=== PATIENT | female | born 1950 | race Caucasian/White ===

== ENCOUNTER 2016-11-01 07:53 | Inpatient (IN) | payer OTHER, MEDICARE ==
[~2016-11-01 07:53] MED LIST: NS IV ONE; POVIDONE-IODINE 20 ML in SODIUM CL IRRIG SOLUTION 500 ML IRR ONE; ROPIVACAINE 0.2% 80 MG, EPINEPHrine 0.2 MG, KETOROLAC TROMETHAMINE 30 MG in BAG 0 ML IU ONE; TRANEXAMIC ACID IV ONE
[2016-11-01] MEDS ORDERED: FAMOTIDINE 20 MG TAB PO ONE (08:32)
[2016-11-01] MEDS ORDERED: ceFAZolin 2 GM/DEXTROSE 100 ML IV ONE (08:32)
[2016-11-01] MEDS ORDERED: DEXAMETHASONE 4 MG/ML VIAL IVP ONE (08:32)
[2016-11-01] MEDS ORDERED: ACETAMINOPHEN 325 MG TAB PO ONE (08:32)
[2016-11-01] MEDS ORDERED: ceFAZolin 1 GM/5 ML SYR ONE (08:37)
[2016-11-01] MEDS ORDERED: LIDOCAINE 1% 2 ML INJ ONE (08:46)
--- NOTE | 2016-11-01 08:48 | PDHPUP ---
History & Physical Update H&P update statement: This history and physical update is based on an assessment of the patient which was completed after admission or registration (within 24 hours), but prior to the surgery/procedure. H&P update: H&P reviewed & patient examined, no change in patient's condition since H&P completed
[2016-11-01] MEDS ORDERED: MIDAZOLAM 2 MG/2 ML VIAL IVP ONE (09:17)
[2016-11-01] MEDS ORDERED: MIDAZOLAM 2 MG/2 ML VIAL ONE (09:18)
[2016-11-01] MEDS ORDERED: LIDOCAINE 1% 2 ML INJ ID PRN (09:19)
[2016-11-01] MEDS ORDERED: LR 1,000 ML IV ONE (09:19)
--- NOTE | 2016-11-01 09:19 | PDANEPAE ---
ANE Past Medical History - Cardiovascular History Hx Hypertension: Yes Hx Arrhythmias: No Hx Chest Pain: No Hx Coronary Artery / Peripheral Vascular Disease: No Hx CHF / Valvular Disease: No Hx Palpitations: No - Pulmonary History Hx COPD: No Hx Asthma/Reactive Airway Disease: No Hx Recent Upper Respiratory Infection: No Hx Oxygen in Use at Home: No Hx Sleep Apnea: No Sleep Apnea Screening Result - Last Documented: Negative Pulmonary History Comment: PNEUMONIA YRS AGO - Neurologic History Hx Cerebrovascular Accident: No Hx Seizures: No Hx Dementia: No - Endocrine History Hx Diabetes: No Hypothyroid: No Hyperthyroid: No Obesity: yes - Renal History Hx Renal Disorders: No - Liver History Hx Hepatic Disorders: No - Neurological & Psychiatric Hx Hx Neurological and Psychiatric Disorders: No - Congenital Disorder History Hx Congenital Disorders: No - GI History Hx Gastrointestinal Disorders: No - Other Health History Other Health History: OSTEOARTHRITIS. ROSECIA - Chronic Pain History Chronic Pain: Yes (LT HIP) - Surgical History Prior Surgeries: RT FOOT ORIF TOES 08/2014. R breast lumpectomy ANE Review of Systems - Exercise capacity METS (RN): 4 METS ANE Patient History - Allergies Allergies/Adverse Reactions: No Known Allergies Allergy (Verified 10/18/16 13:14) - Home Medications Home Medications: Ascorbic Acid [Vitamin C] 1,000 mg PO DAILY 10/18/16 [Last Taken Unknown] Aspirin [Aspirin 81mg (*)] 81 mg PO BID 10/18/16 [Last Taken Unknown] Beta-Carotene(A) W-C & E/Min [Ocuvite] 1 tab PO DAILY 10/18/16 [Last Taken Unknown] Glucosamine/Chondroitin [Glucosamine/Chondroitin (*)] 1 each PO DAILY 10/18/16 [ Last Taken Unknown] Herbals/Supplements -Info Only 1 ea PO DAILY 10/18/16 [Last Taken Unknown] Ibuprofen [Motrin (*)] 400 mg PO TID PRN 10/18/16 [Last Taken Unknown] Lisinopril/Hctz 20/12.5MG [Zestoretic/Prinzide 20/12.5MG (*)] 1 ea PO DAILY 02/24 [Last Taken Unknown] Pravastatin Sodium [Pravachol] 10 mg PO HS 10/18/16 [Last Taken Unknown] Vitamin B Complex [Super B-50 Complex] 1 each PO DAILY 10/18/16 [Last Taken Unknown] - NPO status NPO Since - Liquids (Date): 10/31/16 NPO Since - Liquids (Time): 20:00 NPO Since - Solids (Date): 10/31/16 NPO Since - Solids (Time): 20:00 - Smoking Hx Smoking Status: Never smoked - Family Anes Hx Family Hx Anesthesia Complications: NEG ANE Labs/Vital Signs - Vital Signs Blood Pressure: 131/74 Heart Rate: 77 Respiratory Rate: 16 O2 Sat (%): 91 Height: 162.56 cm Weight: 86.183 kg ANE Physical Exam - Airway Neck exam: FROM Mallampati Score: Class 2 Mouth exam: normal dental/mouth exam, poor dentition - Pulmonary Pulmonary: no respiratory distress, no rales or rhonchi, clear to auscultation - Cardiovascular Cardiovascular: regular rate and rhythym, no murmur, rub, or gallop - ASA Status ASA Status: II ANE Anesthesia Plan Anesthesia Plan: MAC, spinal
[2016-11-01] MEDS ORDERED: fentaNYL 100 MCG/2 ML INJ ONE (09:36)
[2016-11-01] MEDS ORDERED: PROPOFOL/EMULSION 500 MG/50 ML BOTTLE IV ONE (09:36)
[2016-11-01] MEDS ORDERED: ONDANSETRON 4 MG/2 ML VIAL ONE (09:37)
[2016-11-01] MEDS ORDERED: PHENYLEPHRINE HCL 100 MCG/ML SYR ONE (09:55)
[2016-11-01] MEDS ORDERED: epHEDrine SULFATE 10 MG/ML SYR ONE ×4 (10:03→10:28)
[2016-11-01] MEDS ORDERED: ONDANSETRON 4 MG/2 ML VIAL IVP PRN ×2 (10:22→11:21)
[2016-11-01] MEDS ORDERED: NALOXONE HCL 0.4 MG/ML INJ IVP PRN (10:22)
[2016-11-01] MEDS ORDERED: PROMETHAZINE HCL 25 MG/ML INJ IVP PRN ×2 (10:22→11:21)
[2016-11-01] MEDS ORDERED: ACETAMINOPHEN 500 MG TAB PO PRN (10:22)
[2016-11-01] MEDS ORDERED: D5W LR 500 ML IV PRN (10:22)
[2016-11-01] MEDS ORDERED: HYDROCODONE/APAP 5/325 TAB PO PRN (10:22)
--- NOTE | 2016-11-01 11:18 | POSTOPPROG ---
Post Op Note Date of Operation: 11/01/16 Surgeon: David Perez [employer] Superintendent: Trent Mishra/Case Robledo Anesthesiologist: Derik Gil Anesthesia: IV Sedation, Spinal Post-op Diagnosis: Left hip severe degenerative arthritis Procedure: Left total hip arthroplasty Inf/Abcess present in the surg proc area at time of surgery?: No EBL: [id number]
[2016-11-01] MEDS ORDERED: NS 500 ML IV PRN (11:21)
[2016-11-01] MEDS ORDERED: DIPHENOXYLATE/ATROPINE LOMOTIL 1 TAB PO PRN (11:21)
[2016-11-01] MEDS ORDERED: PHARMACY PAIN CONSULT 1 EA MISC PRN (11:21)
[2016-11-01] MEDS ORDERED: BISACODYL 10 MG SUPP PR PRN (11:21)
[2016-11-01] MEDS ORDERED: PROMETHAZINE HCL 25 MG SUPPR PR PRN (11:21)
[2016-11-01] MEDS ORDERED: LACTULOSE 20 GM/30 ML UDCUP PO PRN (11:21)
[2016-11-01] MEDS ORDERED: CYCLOBENZAPRINE 10 MG TAB PO PRN (11:21)
[2016-11-01] MEDS ORDERED: MAGNESIUM HYDROXIDE 30 ML UDCUP PO PRN (11:21)
[2016-11-01] MEDS ORDERED: ONDANSETRON DISINTEGRATING 4 MG TAB PO PRN (11:21)
[2016-11-01] MEDS ORDERED: POLYETHYLENE GLYCOL 3350 17 GM PKT PO PRN (11:21)
[2016-11-01] MEDS ORDERED: diphenhydrAMINE 25 MG CAP PO PRN (11:21)
[2016-11-01] MEDS ORDERED: METOCLOPRAMIDE 10 MG/2 ML VIAL IVP PRN (11:21)
[2016-11-01] MEDS ORDERED: oxyCODONE IR 5 MG TAB PO PRN (11:21)
[2016-11-01] MEDS ORDERED: TEMAZEPAM 15 MG CAP PO PRN (11:21)
--- NOTE | 2016-11-01 12:28 | GOP ---
[f rep st] OPERATIVE REPORT DATE OF OPERATION: 11/01/2016 SURGEON: David Perez MD GAS ADJUSTER: Trent Mishra and Case Robledo. ANESTHESIA: A combination of Marcaine, spinal, and IV sedation. ANESTHESIOLOGIST: Dr. Derik Gil. PREOPERATIVE DIAGNOSIS: Left hip severe degenerative arthritis. POSTOPERATIVE DIAGNOSIS: Left hip severe degenerative arthritis. PROCEDURE PERFORMED: Left total hip arthroplasty, ceramic femoral head on highly cross-linked polye thylene cup liner. FINDINGS: ESTIMATED BLOOD LOSS: About 400 mL. COUNTS: The sponge and needle count were correct on 2 occasions. I used a [employer] Tritanium solid-backed hemispherical shell with an outside diameter of 52 mm. The liner was a Walsh X3 flush highly cross-linked liner with an inside diameter of 32 mm. The femora l component was a press-fit Rios Accolade II standard offset stem in size 4. The femoral head wa s a Walsh Biolox Delta ceramic head with a -4 mm neck length and a 32 mm outside diameter. Trent Mishra and Case Robledo acted as surgical assistants. Their assistance was a medical sharath yang. DESCRIPTION OF PROCEDURE: The patient was given 2 g of IV Ancef preoperatively within 60 minutes of surgery. She was also given IV tranexamic acid at a dose of 20 mg/kg. She was placed on the [facility] room table and given spinal anesthesia with Marcaine by Dr. Gil. She was then placed s upine and given IV sedation. A Patricia catheter was not used. She wore a RICHIE stocking and SCD on the nonoperative leg. She was rolled to the right lateral decubitus position. The position was secure d with the pegboard table attachment. An axillary roll was used and all pressure points were carefu lly padded. Her height is 5 feet 4 inches, her weight 190 pounds and her BMI is 32.6. Her bulkines s made positioning difficult. Her perineum was isolated with plastic adhesive drapes. The left hip and left lower extremity were prepped with ChloraPrep. They were draped free using sterile sheets, stockinette, and Ioban plastic drape. The [employer] time-out was performed to veri fy the correct surgical side and the correct patient identity. The [place] time-out was also perfor med. I made a 5-6 inch straight oblique posterolateral hip skin incision. Subcutaneous tissues were autumn ply divided and hemostasis was obtained using electrocautery. She had about a 2-3 inch thick layer of subcutaneous fat. Her fascia pennie was identified and split along the axis of its fibers. I then curved posteriorly and proximally, and split the fascia of the gluteus genie and bluntly split th e muscle fibers in line with their orientation. The Charnley self-retaining retractor was inserted. Her sciatic nerve was located, partially exposed, and protected throughout the procedure. The ext ernal rotators and the posterior hip capsule were divided as separate layers at the base of the femo ral neck, tagged, and reflected posteriorly. A smooth 1/8-inch Steinmann pin was inserted verticall y into the ilium superior to the acetabulum. A 1/8-inch drill bit was inserted vertically into the greater trochanter and parallel to the first pin. The distance between the 2 was measured for leg l ength reference. The femoral head was dislocated posteriorly. Severe degenerative changes were pre sent on her femoral head. The femoral neck was osteotomized at the appropriate level and inclinatio n. I was careful to preserve all the posterior capsule and most of the anterior capsule. The remna nt of her damaged labrum was excised. I prepared the femur first. This allowed me to triage licensed practical nurse the amount of natural femoral neck anteversion . This, in turn, allowed me to later determine the correct amount of cup anteversion. She had 12-1 5 degrees of femoral neck anteversion. The canal was opened laterally with a box chisel. I broache d sequentially up to size 4. I was using the Walsh Accolade II stem. I used the size 4 broach as a trial stem. I was careful to lateralize adequately. Appropriate retractors were inserted to exp ose the acetabulum. The acetabulum was reamed sequentially up to size 51 mm. I selected the Stryke r Tritanium solid-backed hemispherical shell in a size 52 outside diameter. This was tapped securel y into place in the proper degree of inclination anteversion. I used the transverse acetabular liga ment and other acetabular bony landmarks to help me properly orient the cup. I inserted a screw-in metal dome hole plug. She did not have any significant periacetabular osteophytes. I performed a series of trial reductions to determine length and stability. I concluded that the si ze 4 stem with a -4 mm neck length, a 32 mm head and a flush liner gave me the proper combination of appropriate length and good anterior and posterior stability. The flush or 0 degree Rios X3 hig hly cross-linked polyethylene liner was inserted and tapped securely into place. The Rios Accola de II stem in size 4 with standard offset was inserted press-fit and was a very tight fit. I did on e final trial reduction and confirmed that the -4 mm neck length with a 32 mm head was the proper co mbination. The Walsh Biolox Delta ceramic head with an outside diameter of 32 mm and a neck lengt h of -4 mm was tapped securely onto the clean trunnion. The acetabulum was irrigated, and cleaned a nd the hip was reduced one final time. She had excellent anterior and posterior stability, and appr opriate length. 40 mL of the joint anesthetic cocktail was injected into the capsule, the deep musculature, and the subcutaneous tissues along the skin edges. The joint was thoroughly irrigated one final time with a dilute Betadine solution. Her sciatic nerve was reinspected and looked unharmed. The external rot ators and the posterior hip capsule were repaired in separate layers with #2 FiberWire sutures throu gh drill holes in the greater trochanter. This provided a strong posterior capsular and external ro tator repair. The fascia pennie was closed first with a #2 fuownj-in-dwgau FiberWire suture followed by a running #2 barbed Ethicon Stratafix PDO suture. The subcutaneous tissues were closed with a ru nning 0 barbed Ethicon Stratafix Monoderm suture. The skin was closed with a running 3-[address] [facility] icon Stratafix Monoderm subcuticular suture. The skin edges were reapproximated and sealed with Bandar mabond glue. The wound was covered with a strip of Telfa and everything was held in place with a pi gaston of clear plastic Tegaderm. A long-leg RICHIE stocking and SCD were applied to her left lower extre mity. She wore a stocking and SCD on the opposite leg during the procedure. An abduction pillow wa s placed between her knees. She was awakened from anesthesia and rolled to the supine position on [facility]. She was taken to the PACU in satisfactory condition. There were no recognized intraoperative complications. /[id number]/MODL
--- NOTE | 2016-11-01 12:37 | POSTANESTH ---
Post Anesthetic Evaluation Cardiovascular Status: Normal, Stable Respiratory Status: Normal, Stable Level of Consciousness/Mental Status: Can Participate in Eval Pain Control: Adequate, Prn Tx Ordered Nausea/Vomiting Control: Adequate, Prn Tx Ordered Complications Possibly Related to Anesthesia: None Noted
[2016-11-01] MEDS: KETOROLAC 30 MG/1 ML SDV IVP PRN ×2 (12:57→20:48)
[2016-11-01] MEDS: ACETAMINOPHEN 325 MG TAB PO SCH ×2 (13:02→19:05)
[2016-11-01] MEDS: LR 1,000 ML IV SCH ×2 (13:06→20:48)
[2016-11-01] MEDS: ceFAZolin 2 GM/DEXTROSE 100 ML IV SCH (16:28)
[2016-11-01] MEDS: FAMOTIDINE 20 MG TAB PO SCH (20:51)
[2016-11-01] MEDS: traMADol 50 MG TAB PO PRN (20:51)
[2016-11-01] MEDS: SENNOSIDES/DOCUSATE SODIUM TAB PO SCH (20:52)
[2016-11-01] MEDS: ASPIRIN 325 MG TAB PO SCH (20:52)
[2016-11-01] MEDS ORDERED: PRAVASTATIN SODIUM 20 MG TAB PO SCH (21:00)
[2016-11-01] MEDS ORDERED: NON-FORMULARY NEW DRUG (Simvastatin [Simvastatin] 10 MG) PO SCH (21:00)
[2016-11-02] MEDS: ceFAZolin 2 GM/DEXTROSE 100 ML IV SCH (00:39)
[2016-11-02] MEDS: ACETAMINOPHEN 325 MG TAB PO SCH ×2 (00:40→05:46)
[2016-11-02 05:23] LABS: HEMATOCRIT 36.8 % (38.0-47.0); HEMOGLOBIN 12.3 g/dL (12.6-16.3)
[2016-11-02] MEDS: traMADol 50 MG TAB PO PRN (05:47)
[2016-11-02] MEDS: KETOROLAC 30 MG/1 ML SDV IVP PRN (07:44)
[2016-11-02] MEDS: FAMOTIDINE 20 MG TAB PO SCH (07:44)
[2016-11-02] MEDS: LISINOPRIL/HCTZ 20/12.5MG 1 EA TAB PO SCH ×2 (07:45→08:30)
[2016-11-02 07:49] VITALS: O2SAT 99
[2016-11-02] MEDS: SENNOSIDES/DOCUSATE SODIUM TAB PO SCH (07:51)
[2016-11-02] MEDS: ASPIRIN 325 MG TAB PO SCH (07:51)
[2016-11-02] MEDS ORDERED: FERROUS SULFATE 140 MG TAB.ER PO SCH (09:00)
[2016-11-02 09:20] VITALS: BP 116/73; PULSE 83; RESP 18; TEMP 98.2
--- NOTE | 2016-11-02 09:42 | SOAPPROG ---
SOAP Progress Note Assessment/Plan: Assessment: Afebrile. Mild pain. She has been up and walking. H&H is good. Her sciatic nerve is intact. Postop films look good. Her dressing is dry. Plan: Up with physical therapy today. Discharged later today. 11/02/16 09:41 Objective: Vital Signs Temp Pulse Resp BP Pulse Ox 36.8 C 83 18 116/73 99 11/02/16 08:00 11/02/16 08:00 11/02/16 08:00 11/02/16 08:00 11/02/16 07:48 Laboratory Results 11/02/16 04:55 11/01/16 11/02/16 11/03/16 05:59 05:59 05:59 Intake Total 1225 Output Total 1500 Balance -275 ICD10 Worksheet Patient Problems: Problems Problem Status Onset Osteoarthritis of left hip Acute
--- NOTE | 2016-11-02 15:07 | GDS ---
[f rep st] DISCHARGE SUMMARY ADMITTING DIAGNOSES: Left hip degenerative arthritis. DISCHARGE DIAGNOSIS: Left hip degenerative arthritis. OPERATIONS PERFORMED: On 11/01/2016, a left total hip arthroplasty. POSTOPERATIVE COMPLICATIONS: None. CONDITION ON DISCHARGE: Improved. DESCRIPTION OF HOSPITAL COURSE: The patient was admitted to the hospital on the morning of surgery. Her preoperative CBC, electrolytes, BUN and creatinine were all normal. The same day, under a com bination of Marcaine, spinal, and IV sedation, she underwent a left total hip arthroplasty. Postope ratively, she was treated with multimodal DVT prophylaxis, including aspirin. No postoperative void ing problems. On the first postoperative day, her hemoglobin and hematocrit were 12.3 and 36.8. She was seen by P hysical Therapy and made good progress with ambulation and stairs. By the time of discharge, she was afebrile, her wound was clean and dry and she was independent walk ing with a walker. DISPOSITION: The patient is discharged to her home. DISCHARGE INSTRUCTIONS: She will go to outpatient Physical Therapy. She may progress to full weigh tbearing on the left as tolerated. Use an abduction pillow in bed for 3 weeks. Use RICHIE stockings f or 1 week. She has prescriptions for oxycodone and tramadol for pain control. Continue aspirin 325 mg p.o. daily for 21 days. I will see her back in the office on November 21. If any problems, she i s to call me at the office. /[id number]/MODL
== END 2016-11-02 12:58 | disposition home or self-care (01) | DRG 470 ==
LOC: F3N 07:53
PROVIDERS: ADMIT Orthopaedic Surgery; ATTEND Orthopaedic Surgery
PROC: 0SRB04Z Replacement of Left Hip Joint with Ceramic on Polyethylene Synthetic Substitute, Open Approach (ICD-10-PCS; principal; 2016-11-01 09:45)
DX: M16.12 Unilateral primary osteoarthritis, left hip (principal); I10 Essential (primary) hypertension
CPT/HCPCS: 97110-GP; 97116-GP; 97161-GP; 97165-GO; 97530-GP; G8978-GP-CI; G8979-GP-CI; G8980-GP-CI; G8987-GO-CI; G8988-GO-CI; G8989-GO-CI; J0171; J0690; J1100; J1885; J2250; J2370; J2405; J2704; J2795; J3010